=== PATIENT | female | born 1975 | race Caucasian/White ===

== ENCOUNTER → 2020-10-10 11:44 | Outpatient (CLI) | payer OTHER, SELFPAY ==
[2020-10-10 13:24] LABS: Coronavirus 19 IgG Antibody Negative (Negative); Coronavirus 19 IgM Antibody Negative (Negative)
== END ==
PROVIDERS: Visit Provider Urology
DX: Z03.818 Encounter for observation for suspected exposure to other biological agents ruled out (principal)
CPT/HCPCS: 36415; 86328

== ENCOUNTER → 2021-10-30 13:50 | Outpatient (CLI) | payer OTHER, SELFPAY ==
--- NOTE | 2021-10-30 13:53 | CT_ITS ---
FINAL REPORT CLINICAL HISTORY: RUQ ABD PAIN, VOMITING FINDINGS: Axial CT images of the abdomen and pelvis were obtained without intravenous contrast. Coronal reformatted images were also obtained.This study was performed with techniques to keep radiation doses as low as reasonably achievable (ALARA). Individualized dose reduction techniques using automated exposure control or adjustment of mA and/or kV according to the patient's size were employed. Abdomen: There are multiple less than 5 mm nodules in the right middle lobe, nonspecific and favor inflammatory. There is no evidence of renal stone or hydronephrosis. There is questionable stones or sludge in the gallbladder. There is a 7 mm low attenuation focus of the lateral liver dome, nonspecific and could represent a cyst or hemangioma. The spleen and pancreas have an unremarkable, unenhanced appearance. Pelvis: Images of the pelvis reveal no evidence of ureteral dilation or ureteral stone. The appendix is not definitely visualized. There is a probable 2.7 cm cyst in the left ovary. No abnormal fluid collection is identified. IMPRESSION: Questionable stones or sludge in the gallbladder. If indicated right upper quadrant ultrasound. No renal or ureteral stone identified. 7 mm low attenuating focus in the lateral liver dome, nonspecific. Reviewed, Interpreted and Dictated by Yinka Conner III, MD Transcribed by Earline Hess Authenticated by Yinka Conner III, MD on 10/30/2021 03:34:09 PM [facility]
== END ==
PROVIDERS: PCP Internal Medicine; Visit Provider Urology
DX: R10.31 Right lower quadrant pain (principal); R10.32 Left lower quadrant pain
CPT/HCPCS: 74176

== ENCOUNTER → 2021-11-02 08:27 | Outpatient (CLI) | payer OTHER, SELFPAY ==
--- NOTE | 2021-11-02 08:33 | US_ITS ---
FINAL REPORT CLINICAL HISTORY: ruq pain FINDINGS: Sonographic images of the right upper quadrant were obtained. The pancreas is partially obscured.The liver has an unremarkable appearance.The gallbladder appears normal without evidence of gallstones.There is no evidence of biliary ductal dilatation.The common duct measures 4mm. Limited images of the right kidney are unremarkable. IMPRESSION: Unremarkable right upper quadrant ultrasound. Reviewed, Interpreted and Dictated by Yinka Conner III, MD Transcribed by Rossi Cowart Authenticated by Yinka Conner III, MD on 11/02/2021 10:02:27 AM [facility]
== END ==
PROVIDERS: Visit Provider Urology
DX: R10.9 Unspecified abdominal pain (principal); R93.5 Abnormal findings on diagnostic imaging of other abdominal regions, including retroperitoneum
CPT/HCPCS: 76705

== ENCOUNTER → 2021-11-16 10:05 | Outpatient (CLI) | payer OTHER, SELFPAY ==
--- NOTE | 2021-11-16 10:06 | NM_ITS ---
FINAL REPORT TECHNIQUE: The patient was injected with 7.8 mCi of technetium 99m Choletec. Patient drinking Ensure. CLINICAL HISTORY: abd pain 10:55 am 7.80 mc Tc Choletec injected into lt ant sb showed up in 45 mins pt drank ensure no pain after drinking FINDINGS: Hepatic uptake is normal. There is normal gallbladder and small bowel activity. Post Ensure images render an ejection fraction of 33%. IMPRESSION: Abnormally depressed ejection fraction of 33% indicative of biliary dysfunction. Reviewed, Interpreted and Dictated by Kayden Orta MD Transcribed by Amrit Ramirez Authenticated by Kayden Orta MD on 11/16/2021 04:00:06 PM [facility]
== END ==
PROVIDERS: PCP Internal Medicine; Visit Provider Urology
DX: R10.9 Unspecified abdominal pain (principal)
CPT/HCPCS: 78227; A9537